=== PATIENT | female | born 1990 | race Two or more races ===

== ENCOUNTER 2018-02-01 14:40 | Emergency (ER) | payer MEDICAID ==
[~2018-02-01] VITALS: Ht 162.6 cm; Wt 96.2 kg
[2018-02-01 17:31] LABS: BASOPHIL % 0.6 % (0-2); PLATELET COUNT 308 x10^3mcL (130-400); RED CELL DISTRIBUTION WIDTH 14.4 % (11.5-14.5)
[2018-02-01 17:41] LABS: UA SPECIFIC GRAVITY >=1.030 (1.005-1.035); microscopic required? YES; urine erythrocyte 3+ (NEGATIVE)
[2018-02-01 18:45] VITALS: BP 145/91
== END 2018-02-01 18:45 | disposition home or self-care (01) ==
LOC: ED 14:40
PROVIDERS: Specialist
DX: N93.8 Other specified abnormal uterine and vaginal bleeding (principal); N39.0 Urinary tract infection, site not specified
CPT/HCPCS: 36415

== ENCOUNTER 2018-05-10 19:01 | Emergency (ER) | payer MEDICAID ==
[~2018-05-10] VITALS: Ht 162.6 cm; Wt 89.8 kg
[2018-05-10 19:09] VITALS: Ht 162.6 cm; Wt 89.8 kg
[2018-05-10 22:30] VITALS: BP 140/88
== END 2018-05-10 22:30 | disposition home or self-care (01) ==
LOC: ED 19:01
DX: J03.90 Acute tonsillitis, unspecified (principal); I10 Essential (primary) hypertension
CPT/HCPCS: J1100; J1885